=== PATIENT | male | born 1995 | race African-American/Black ===

== ENCOUNTER 2017-01-20 01:52 | Emergency (ER) | payer SELFPAY ==
[~2017-01-20] VITALS: Ht 175.3 cm; Wt 70.5 kg
[2017-01-20] MEDS ORDERED: KETOROLAC TROMETHAMINE 30 MG/ML VIAL IM ONE (03:45)
[2017-01-20 04:53] VITALS: BP 134/72
== END 2017-01-20 04:55 | disposition home or self-care (01) ==
LOC: EMS 01:53
DX: S92.122A Displaced fracture of body of left talus, initial encounter for closed fracture (principal); S93.402A Sprain of unspecified ligament of left ankle, initial encounter; V00.131A Fall from skateboard, initial encounter; Y93.51 Activity, roller skating (inline) and skateboarding; Y92.89 Other specified places as the place of occurrence of the external cause; Y99.8 Other external cause status
CPT/HCPCS: 29515; 73610; 96372; 99284; J1885